=== PATIENT | female | born 1960 | race Caucasian/White ===

== ENCOUNTER 2018-11-03 10:21 | Outpatient (CLI) | payer BC | END 2018-11-03 10:22 | disposition home or self-care (01) | LOC: BICMAMMO 10:21 | PROVIDERS: ATTEND Family Medicine | DX: Z12.31 Encounter for screening mammogram for malignant neoplasm of breast (principal); R92.1 Mammographic calcification found on diagnostic imaging of breast | CPT/HCPCS: 77063; 77067 ==

== ENCOUNTER 2019-04-27 10:23 | Inpatient (IN) | payer BC ==
[2019-04-27] MEDS ORDERED: Ondansetron PF 4 MG/2 ML Vial ONE (10:51)
[2019-04-27 11:04] LABS: Bacteria/HPF 4+ HPF (None Seen); Bilirubin Negative (Negative); Blood, Urine 2+ (Negative); Clarity Extra Turbid (Clear); Glucose, Urine (Dipstick) Normal (Negative); Leukocyte 500 Leu/uL (Negative); Nitrite 2+ (Negative); Protein, Urine (Dipstick) 100 mg/dL (Neg-Trace); RBC/HPF Greater than 50 HPF (0-3); Urobilinogen Normal mg/dL (Less than 2); WBC/HPF Greater than 50 HPF (0-3)
[2019-04-27 11:14] LABS: #Lymphocytes 1.6 thou/uL (1.20-3.40); #Monocytes 0.6 thou/uL (0.11-0.59); #Neutrophils 5.9 thou/uL (1.40-6.50); %Basophils 0.4 % (0.0-1.0); %Eosinophils 0.2 % (0.0-10.0); %Lymphocytes 19.3 % (21.0-51.0); %Monocytes 7.4 % (0.0-10.0); %Neutrophils 72.6 % (42.0-75.0); Hemoglobin 12.8 g/dL (12.0-16.0); Mean Corpuscular HGB CONC 32.1 g/dL (32.0-36.0); Mean Corpuscular Volume 93.5 fL (78.0-98.0); Mean Platelet Volume 7.3 fL (7.4-10.4); Platelet Count 168 thou/uL (130-400); RBC Distribution Width 12.4 % (11.5-14.5); Red Blood Cell (RBC) Count 4.25 mill/uL (4.20-5.40); White Blood Cell (WBC) Count 8.1 thou/uL (4.8-10.8)
[2019-04-27 11:42] LABS: ALT (SGPT) 13 U/L (8-55); AST (SGOT) 18 U/L (5-34); Albumin 3.9 g/dL (3.5-5.0); Alkaline Phosphatase 127 U/L (40-150); Anion Gap 14 mmol/L (10-20); BUN (Urea Nitrogen) 13 mg/dL (9.8-20.1); Bilirubin, Total 0.8 mg/dL (0.2-1.2); Calc. Creatinine Clearance 0 mL/min (70-130); Calcium 9.4 mg/dL (7.8-10.44); Carbon Dioxide 24 mmol/L (22-29); Chloride 100 mmol/L (98-107); Estimated GFR-MDRD 42; Globulin 3.3 g/dL (2.4-3.5); Glucose 115 mg/dL (70-105); Lipase 21 U/L (8-78); Potassium 4.3 mmol/L (3.5-5.1); Protein, Total 7.2 g/dL (6.0-8.3); Sodium 134 mmol/L (136-145)
[2019-04-27] MEDS ORDERED: MEROPENEM 1 GM/50 ML 1 GM in Premix Bag 1 BAG IVPB SCH ×2 (12:00→20:00)
--- NOTE | 2019-04-27 12:00 | RAD ---
PORTABLE CHEST ONE VIEW: 04/27/2019 10:56 a.m. HISTORY: Fever. FINDINGS: The heart size is normal. No focal areas of consolidation, pneumothoraces, or pleural effusions are seen. IMPRESSION: No radiographic evidence of acute cardiopulmonary process. POS: [facility]
--- NOTE | 2019-04-27 12:33 | CT ---
EXAM: CT abdomen and pelvis with IV contrast PROVIDED CLINICAL HISTORY: Nausea COMPARISON: None FINDINGS: The visualized lung bases are free of significant opacity. The solid abdominal organs demonstrate no significant abnormality. Small left adrenal adenoma. Change s of prior cholecystectomy. There is no bowel dilatation, inflammatory fat stranding, free fluid or free air apparent. There is n o evidence for appendicitis. No regional lymph node enlargement apparent. The regional major vascular structures appear unremarkab le. The osseous structures demonstrate no concerning lytic or blastic lesions. IMPRESSION: No evidence for an acute process.
--- NOTE | 2019-04-27 13:17 | PDOC.FPRHP ---
- History of Present Illness Chief Complaint: UTI w/ nausea and lightheadedness History of Present Illness: PCP : Dr. Balbuena Ms. Myers is a previously healthy 58yoF who began having urinary symptoms at the beginning of this week (04/23/2019). She states that on Tuesday had a "spell" where she got nauseous, felt chills, and went home and stayed in bed. Tuesday she had a doctor's appointment and at that time it was found she had a urinary tract infection. Her doctor started her on Bactrim. She took two days worth of the antibiotics. Since then she has experienced persistent decrease in appetite and nausea. Last night she had another episode of nausea, chills, and felt light headed. She was unable to take any of her antibiotics. She continues to have pain with urination and describes her urine as cloudy yellow. She denies any past medical history other than depression. She does not endorse frequent urinary tract infections or a history of pyelonephritis. She did have one episode of atypical chest pain that was short in duration, substernal in nature, non-exertional, and went away spontaneously. ED Course: Sepsis alert triggered due to 103F temperature and HR of 120BPM. She received 1g Meropenem, 3L NS, and IV Zofran. Urine analysis was taken. - Allergies/Adverse Reactions Allergies Allergy/AdvReac Type Severity Reaction Status Date / Time Penicillins Allergy Verified 04/27/19 15:27 - Home Medications Medication Instructions Recorded Confirmed Type Atorvastatin Calcium 10 mg PO DAILY 04/27/19 04/27/19 History Cholecalciferol (Vitamin D3) 5,000 units PO DAILY 04/27/19 04/27/19 History [Vitamin D3] Refugio-3 Fatty Acids/Fish Oil [Fish 1,000 mg PO DAILY 04/27/19 04/27/19 History Oil 1,000 mg Capsule] Sertraline HCl 100 mg PO DAILY 04/27/19 04/27/19 History Sulfamethoxazole/Trimethoprim 1 tab PO BID 04/27/19 04/27/19 History [Bactrim DS] - History PMHx: Depression Dyslipidemia PSHx: Tonsillectomy Cholecystectomy FHx: Non-contributory Social: Social drinker, non-smoker/never smoker - Review of Systems General: reports: fever/chills, weight/appetite/sleep changes. denies: night sweats, fatigue Eyes: denies: eye pain ENT: denies: nasal congestion, rhinorrhea Respiratory: denies: cough, congestion, shortness of breath Cardiovascular: reports: chest pain (discomfort x1 episode). denies: palpitation, edema, paroxysmal nocturnal dyspnea Gastrointestinal: reports: nausea, constipation, abdominal pain. denies: vomiting, diarrhea, GI bleeding Genitourinary: reports: dysuria, polyuria. denies: incontinence, discharge Skin: denies: rashes, lesions, jaundice, itching Musculoskeletal: denies: pain, tenderness, stiffness, swelling, arthritis/ arthralgias Neurological: denies: numbness, syncope, seizure Psychological: reports: depression. denies: anxiety - Vital signs BP: 120/70 HR: 94 RR: 16 Tmax: 100.0 Pox: 97% on RA Wt: 114 kg - Physical Exam Constitutional: NAD, awake, alert and oriented, well developed HEENT: normocephalic and atraumatic, PERRLA, no scleral icterus, grossly normal vision, grossly normal hearing Neck: supple, trachea midline Chest: no-tender to palpation, no lesions Heart: RRR, normal S1/S2, no murmurs/rubs/gallops, pulses present Lungs: CTAB, no respiratory distress, good air movement, no rales/rhonchi, no wheezing, no retractions Abdomen: soft, non-tender, bowel sounds present, no masses/distention Musculoskeletal: normal structure, normal tone, ROM grossly normal Neurological: no focal deficit Skin: no rash/lesions, good turgor Heme/Lymphatic: no unusual bruising or bleeding Psychiatric: normal mood and affect FMR H&P: Results - Labs Result Diagrams: 04/27/19 10:50 04/27/19 10:50 Lab results: WBC 8.1 thou/uL (4.8-10.8) 04/27/19 10:50 Hgb 12.8 g/dL (12.0-16.0) 04/27/19 10:50 Hct 39.7 % (36.0-47.0) 04/27/19 10:50 MCV 93.5 fL (78.0-98.0) 04/27/19 10:50 Plt Count 168 thou/uL (130-400) 04/27/19 10:50 Neutrophils % 72.6 % (42.0-75.0) 04/27/19 10:50 Sodium 134 mmol/L (136-145) L 04/27/19 10:50 Potassium 4.3 mmol/L (3.5-5.1) 04/27/19 10:50 Chloride 100 mmol/L (98-107) 04/27/19 10:50 Carbon Dioxide 24 mmol/L (22-29) 04/27/19 10:50 BUN 13 mg/dL (9.8-20.1) 04/27/19 10:50 Creatinine 1.31 mg/dL (0.6-1.1) H 04/27/19 10:50 Glucose 115 mg/dL (70-105) H 04/27/19 10:50 Lactic Acid 1.3 mmol/L (0.5-2.2) 04/27/19 10:50 Calcium 9.4 mg/dL (7.8-10.44) 04/27/19 10:50 Total Bilirubin 0.8 mg/dL (0.2-1.2) 04/27/19 10:50 AST 18 U/L (5-34) 04/27/19 10:50 ALT 13 U/L (8-55) 04/27/19 10:50 Alkaline Phosphatase 127 U/L (40-150) 04/27/19 10:50 Serum Total Protein 7.2 g/dL (6.0-8.3) 04/27/19 10:50 Albumin 3.9 g/dL (3.5-5.0) 04/27/19 10:50 Lipase 21 U/L (8-78) 04/27/19 10:50 Urine Ketones Negative mg/dL (Negative) 04/27/19 10:29 Urine Blood 2+ (Negative) A 04/27/19 10:29 Urine Nitrite 2+ (Negative) A 04/27/19 10:29 Ur Leukocyte Esterase 500 Denisse/uL (Negative) A 04/27/19 10:29 Urine RBC Greater than 50 HPF (0-3) A 04/27/19 10:29 Urine WBC Greater than 50 HPF (0-3) A 04/27/19 10:29 Ur Squamous Epith Cells 4-6 HPF (0-3) A 04/27/19 10:29 Urine Bacteria 4+ HPF (None Seen) A 04/27/19 10:29 Laboratory Tests 04/27/19 10:29 Urine Clarity Extra Turbid A Urine Protein 100 A Urine Blood 2+ A Urine Nitrite 2+ A Ur Leukocyte Esterase 500 A Urine RBC Greater than 50 A Urine WBC Greater than 50 A Ur Squamous Epith Cells 4-6 A Urine Bacteria 4+ A - EKG Interpretation EK lead EKG shows normal sinus rhythm, Rate (beats per minute): 99, Conduction normal, ST segments normal, T waves normal, [place] normal - Radiology Interpretation CT scan - abdomen Status: report reviewed by me Additional comment: No acute processes Chest x-ray Status: report reviewed by me Additional comment: No Acute processes FMR H&P: A/P - Problem List (1) Depression Current Visit: Yes Status: Acute Code(s): F32.9 - MAJOR DEPRESSIVE DISORDER , SINGLE EPISODE, UNSPECIFIED (2) Sepsis secondary to UTI Current Visit: Yes Status: Acute Code(s): A41.9 - SEPSIS, UNSPECIFIED ORGANISM; N39.0 - URINARY TRACT INFECTION, SITE NOT SPECIFIED (3) SORAYA (acute kidney injury) Current Visit: Yes Status: Acute Code(s): N17.9 - ACUTE KIDNEY FAILURE, UNSPECIFIED (4) Hyperlipidemia Current Visit: Yes Status: Acute Code(s): E78.5 - HYPERLIPIDEMIA, UNSPECIFIED (5) Atypical chest pain Current Visit: Yes Status: Acute Code(s): R07.89 - OTHER CHEST PAIN - Plan 1. Sepsis Secondary to acute complicated UTI * Met SIRS due to temperature of 103F, heart rate of 120s. Source is known UTI, diagnosed in primary care clinic this week. * IV Antibiotics: meropenem 1g TID and vancomycin 15mg/kg BID * IV fluids: received adequate bolus in ed. Maintenance at 140ml/hr * Blood and Urine cultures are pending * Zofran for nausea * Tylenol prn for pain 2. Acute kidney injury * Creatinine 1.31 up from baseline of 0.8 * IVFs 140mL/hr 3. Atypical chest pain * 1 episode of substernal chest pain that was squeezing in nature, non- exertional, and went away on its own. * EKG in the ER was normal * 1st troponin was negative. * Will trend trops and monitor. 4. Depression * Stable, continue Sertraline 100mg 5. Hyperlidemia * recently started on atorvastatin 10mg, will continue Disposition/LOS: Dispo: home Code status: full VTE: Lovenox LOS: <48hrs expected Diet: normal IVF: 140mL/hour FMR H&P: Upper Level - Pertinent history Date/Time: 04/27/19 1313 I, Mars Beal MD, have evaluated this patient and agree with findings/plan as outlined by [employer] certified internetwork expert resident. Pertinent changes/additions are listed here. Ivelisse Myers is a 58 year old F with a PMH of HLD and MDD who presented to the ED with a 4-5 day history for urinary symptoms. Dysuria and urinary frequency started Tuesday and patient went to see his PCP on Tuesday, was diagnosed with UTI and was started on Bactrim. She took the Tuesday and Tuesday dose but missed the next two days because she was not feeling well enough. On Tuesday, she developed nausea, fever, and chills. On arrival to the ED, her temp was 103.1 and she was tachycardic at 110. She denies any history of pyelonephritis. She denies any flank/back pain. She has continued to have urinary symptoms and her urine is darker than normal. She also states that a couple days ago, she experienced chest pressure and heaviness. States that she has no cardiac history and has never had pain like this before. She is not actively having any chest pain. Pain was no associated with exertion. She denies hx of acid reflux. She denies dyspnea, cough, diaphoresis. In the ED, she was given 1 g of Meropenem, 4 mg Zofran, and 30 ml/kg bolus of NS. ROS: 12 point ROS reviewed and were negative unless otherwise stated in HPI. Vitals: BP: 120/70, HR 94, RR 16, T 100.0, O2 sat 97 on RA, weight 114 kg PE: HEENT: AT/NC, EOMI, PERRL, MMM CV: RRR, no murmurs, rubs, gallops Resp: CTAB, no wheezes, rales, rhonchi Abd: Soft, NT/ND, mild TTP in the suprapubic location, BS+, No CVAT Ext: No cyanosis or edema Psych: Alert and oriented, normal mood and affect EKG: NSR, Rate 99, No ST changes, possible Left atrial enlargement CXR: no acute cardiopulmonary process CT Abd: No acute process EKG: NSR, Rate 99, No ST changes, possible left atrial enlargement CXR: No acute cardiopulmonary findings CT Abd: no acute process - Pertinent findings Laboratory Tests 04/27/19 04/27/19 04/27/19 10:29 10:50 10:50 WBC 8.1 Hc Plt Count 168 Sodium 134 L Potassium 4.3 Chloride 100 Carbon Dioxide 24 BUN 13 Creatinine 1.31 H Estimated GFR (MDRD) 42 Glucose 115 H Lactic Acid Calcium 9.4 Magnesium 2.0 Total Bilirubin 0.8 AST 18 ALT 13 Alkaline Phosphatase 127 Troponin I Lipase 21 Urine Clarity Extra Turbid A Urine pH 6.0 Ur Specific [place] 1.015 Urine Protein 100 A Urine Glucose (UA) Normal Urine Ketones Negative Urine Blood 2+ A Urine Nitrite 2+ A Urine Bilirubin Negative Ur Leukocyte Esterase 500 A Urine RBC Greater than 50 A Urine WBC Greater than 50 A Ur Squamous Epith Cells 4-6 A Urine Bacteria 4+ A 04/27/19 04/27/19 10:50 10:50 WBC Hgb Hct Plt Count Sodium Potassium Chloride Carbon Dioxide BUN Creatinine Estimated GFR (MDRD) Glucose Lactic Acid 1.3 Calcium Magnesium Total Bilirubin AST ALT Alkaline Phosphatase Troponin I Less than 0.010 Lipase Urine Clarity Urine pH Ur Specific [place] Urine Protein Urine Glucose (UA) Urine Ketones Urine Blood Urine Nitrite Urine Bilirubin Ur Leukocyte Esterase Urine RBC Urine WBC Ur Squamous Epith Cells Urine Bacteria - Plan A/P 1) Sepsis 2/2 Acute Complicated UTI - On admission, T of 103.1 and HR of 110, UA showed 4+ bact, 2+ Nitrites, 500 leuk est, >500 WBC - 5 day hx of urinary freq and dysuria, chills, fever, nausea - CT Abd: negative for acute intraabdominal process, CXR negative, Lactate was normal - S/p NS bolus and 1 g Meropenem in ED - Continue Empiric IV Abx, Meropenem and Vancomycin - Blood and Urine Cx pending - Continue IVFs @ 140 ml/hr - Continue Zofran for nausea, Tylenol for fever 2) SORAYA - Cr elevated from baseline, likely 2/2 sepsis vs dehydration - s/p 3 L NS in ED - Continue mIVFs - Repeat BMP in AM 3) Atypical Chest Pain - One episode of substernal chest pain at rest 3 days ago, now resolved - EKG showed NSR in 90s without ST changes, possible left atrial enlargement, no cardiac hx - Trop is negative, CXR negative - Will trend troponins - May need outpatient stress test 4) HLD - Continue home medication 5) Depression - Continue home medication VTE Ppx: Lovenox CODE STATUS: FULL CODE Dispo: Anticipate hospital stay <48 hrs Addendum - Attending - Attending Attestation Date/Time: 04/27/19 2929 I personally evaluated the patient and discussed the management with Dr. Cantu. I agree with the History, Examination, Assessment and Plan documented above with any addition or exceptions noted below.
[2019-04-27] MEDS ORDERED: ISOVUE-370 76%-LOCM 1 ML ONE (13:35)
[2019-04-27 15:04] VITALS: BMI 39.0
[2019-04-27] MEDS ORDERED: Senokot S 8.6-50 MG TAB PO PRN (15:48)
[2019-04-27] MEDS ORDERED: Ondansetron ODT 4 MG TAB PO PRN (15:48)
[2019-04-27] MEDS: Acetaminophen 325 MG TAB PO PRN ×2 (16:55→22:25)
[2019-04-27] MEDS ORDERED: Vancomycin HCl 1.75 GM in Sodium Chloride 0.9% 250 ML 300 ML IVPB SCH ×2 (18:15→21:00)
[2019-04-27] MEDS: Sodium Chloride 0.9% 1,000 ML IV SCH (18:18)
[2019-04-27] MEDS ORDERED: Vancomycin HCl 1.75 GM in Sodium Chloride 0.9% 500 ML IVPB SCH (18:30)
[2019-04-27 18:40] LABS: Troponin I Less than 0.010 ng/mL (< 0.028)
[2019-04-28 01:25] LABS: Troponin I Less than 0.010 ng/mL (< 0.028)
[2019-04-28] MEDS: Sodium Chloride 0.9% 1,000 ML IV SCH ×3 (01:26→17:34)
[2019-04-28] MEDS: Acetaminophen 325 MG TAB PO PRN ×2 (03:05→12:32)
[2019-04-28] MEDS: MEROPENEM 1 GM/50 ML 1 GM in Premix Bag 1 BAG IVPB SCH ×3 (05:45→21:20)
--- NOTE | 2019-04-28 06:31 | PDOC.FM ---
- Subjective Subjective: Ms. Myers states that overnight she continued to feel feverish, chills, and nausea periodically throughout the night. Her symptoms resolved with tylenol. She has dull suprapubic pain. Denies CVA tenderness. Denies chest pain, shortness of breath. - Objective MAR Reviewed: Yes Vital Signs & Weight: Vital Signs (12 hours) Temp Pulse Resp BP Pulse Ox 04/28/19 04:00 98.6 F 79 18 100/62 96 04/28/19 00:00 100.4 F H 90 18 97/59 L 94 L 04/27/19 20:00 99.7 F H 89 18 99/64 96 04/27/19 19:48 95 18 118/56 L 94 L 04/27/19 18:40 99.9 F H Weight Weight 116.483 kg I&O: 04/26/19 04/27/19 04/28/19 06:59 06:59 06:59 Intake Total 456 Balance 456 Result Diagrams: 04/28/19 06:08 04/28/19 06:08 Additional Labs: 04/28/19 - 1 of 2 blood cultures has grown gram negative rods, likely E. coli. Phys Exam - Physical Examination Constitutional: NAD HEENT: PERRLA, moist MMs, sclera anicteric Neck: supple, full ROM Respiratory: no wheezing, no rales, no rhonchi, clear to auscultation bilateral Cardiovascular: RRR, no significant murmur, no rub Gastrointestinal: soft, non-tender, no distention, positive bowel sounds Musculoskeletal: no edema, pulses present Neurological: non-focal, moves all 4 limbs Psychiatric: normal affect, A&O x 3 Skin: no rash, normal turgor, cap refill <2 seconds Dx/Plan (1) Depression Code(s): F32.9 - MAJOR DEPRESSIVE DISORDER, SINGLE EPISODE, UNSPECIFIED Status : Acute (2) Sepsis secondary to UTI Code(s): A41.9 - SEPSIS, UNSPECIFIED ORGANISM; N39.0 - URINARY TRACT INFECTION, SITE NOT SPECIFIED Status: Acute (3) SORAYA (acute kidney injury) Code(s): N17.9 - ACUTE KIDNEY FAILURE, UNSPECIFIED Status: Acute (4) Hyperlipidemia Code(s): E78.5 - HYPERLIPIDEMIA, UNSPECIFIED Status: Acute (5) Atypical chest pain Code(s): R07.89 - OTHER CHEST PAIN Status: Acute - Plan Plan: 1. Sepsis Secondary to acute complicated UTI * Met SIRS due to temperature of 103F, heart rate of 120s. Source is known UTI, diagnosed in primary care clinic this week. * Still fevering overnight, 102.6 at 1650 (04/27) and 100.4 at 0000 (04/28). * IV Antibiotics: meropenem 1g TID and vancomycin 15mg/kg BID * IV fluids: received adequate bolus in ed. Maintenance at 140ml/hr * Blood and Urine cultures are pending * 1 of 2 blood cultures has grown gram negative rods, likely E coli. Will continue vanc and zosyn. * Zofran for nausea * Tylenol prn for pain 2. Acute kidney injury, resolved. * Likely secondary to sepsis * Creatinine 0.9, back to her baseline. * IVFs 140mL/hr 3. Atypical chest pain * 1 episode of substernal chest pain that was squeezing in nature, non- exertional, and went away on its own. EKG in the ER was normal * Troponins negative x3 4. Depression * Stable, continue Sertraline 100mg 5. Hyperlidemia * recently started on atorvastatin 10mg, will continue Dispo: upgraded to inpatient status, >48hours expected Code status: full VTE: Lovenox LOS: <48hrs expected Diet: normal IVF: 140mL/hour Addendum - Attending - Attending Attestation Date/Time: 04/28/19 3026 I personally evaluated the patient and discussed the management with I agree with the History, Examination, Assessment and Plan documented above with any addition or exceptions noted below. Await culture results for potential de-escalation antibiotics.
[2019-04-28 06:39] LABS: #Lymphocytes 1.3 thou/uL (1.20-3.40); #Monocytes 0.5 thou/uL (0.11-0.59); #Neutrophils 2.8 thou/uL (1.40-6.50); %Basophils 0.2 % (0.0-1.0); %Eosinophils 0.4 % (0.0-10.0); %Lymphocytes 28.1 % (21.0-51.0); %Monocytes 10.2 % (0.0-10.0); %Neutrophils 61.2 % (42.0-75.0); Hemoglobin 10.3 g/dL (12.0-16.0); Mean Corpuscular HGB CONC 31.9 g/dL (32.0-36.0); Mean Corpuscular Hemoglobin 30.2 pg (27.0-31.0); Mean Corpuscular Volume 94.6 fL (78.0-98.0); Mean Platelet Volume 7.2 fL (7.4-10.4); Platelet Count 122 thou/uL (130-400); RBC Distribution Width 12.2 % (11.5-14.5); Red Blood Cell (RBC) Count 3.42 mill/uL (4.20-5.40); White Blood Cell (WBC) Count 4.6 thou/uL (4.8-10.8)
[2019-04-28 07:02] LABS: Anion Gap 7 mmol/L (10-20); BUN (Urea Nitrogen) 10 mg/dL (9.8-20.1); Calc. Creatinine Clearance 127 mL/min (70-130); Calcium 8.4 mg/dL (7.8-10.44); Carbon Dioxide 28 mmol/L (22-29); Chloride 109 mmol/L (98-107); Estimated GFR-MDRD 65; Glucose 99 mg/dL (70-105); Potassium 4.1 mmol/L (3.5-5.1); Sodium 140 mmol/L (136-145)
[2019-04-28] MEDS ORDERED: Vancomycin HCl 1.75 GM in Sodium Chloride 0.9% 250 ML 300 ML IVPB SCH (08:00)
[2019-04-28] MEDS: Atorvastatin Calcium 10 MG TAB PO SCH (08:53)
[2019-04-28] MEDS: Enoxaparin Sodium 40 MG/0.4 ML SYRINGE SC SCH (08:53)
[2019-04-28] MEDS: Vancomycin HCl 1.75 GM in Sodium Chloride 0.9% 500 ML IVPB SCH ×2 (10:09→21:22)
[2019-04-28] MEDS ORDERED: Meropenem 1 GM in Sodium Chloride 0.9% 100 ML IVPB SCH (12:00)
[2019-04-28 19:17] LABS: Vancomycin, Trough 16.2 ug/mL
[2019-04-29] MEDS: Acetaminophen 325 MG TAB PO PRN (00:36)
[2019-04-29] MEDS: Sodium Chloride 0.9% 1,000 ML IV SCH ×4 (00:38→20:04)
--- NOTE | 2019-04-29 05:39 | PDOC.FM ---
- Subjective Subjective: Ms. Myers states that she is feeling much better this morning. She rested well overnight. She did have a fever at 0100 this morning but states that she didn't feel as bad as she had been when she fevered. She denied her lovenox last night and has not been ambulating, mostly laying in bed. She denies chest pains, shortness of breath, abdominal pain, constipation, dysuria. - Objective MAR Reviewed: Yes Vital Signs & Weight: Vital Signs (12 hours) Temp Pulse Resp BP Pulse Ox 04/29/19 01:35 100.7 F H 93 18 107/72 97 04/28/19 20:00 99.2 F 82 18 100/68 97 Weight Admit Weight 71.123 kg Weight 116.483 kg I&O: 04/27/19 04/28/19 04/29/19 06:59 06:59 06:59 Intake Total 456 2220 Balance 456 2220 Result Diagrams: 04/28/19 06:08 04/29/19 05:33 Additional Labs: Microbiology 04/27/19 10:50 Venous blood - Right Arm Blood Culture - Preliminary Specimen has been received and culture in progress. No Growth to date. 04/27/19 10:50 Venous blood - Left Arm Blood Culture - Preliminary Escherichia coli 04/27/19 10:29 Urine clean catch Urine Culture - Preliminary Escherichia coli Phys Exam - Physical Examination Constitutional: NAD HEENT: PERRLA, moist MMs, sclera anicteric Neck: supple, full ROM Respiratory: no wheezing, no rales, no rhonchi, clear to auscultation bilateral Cardiovascular: RRR, no significant murmur, no rub Gastrointestinal: soft, non-tender, no distention, positive bowel sounds Musculoskeletal: no edema, pulses present Neurological: non-focal, moves all 4 limbs Psychiatric: normal affect, A&O x 3 Skin: no rash, normal turgor, cap refill <2 seconds Dx/Plan (1) Depression Code(s): F32.9 - MAJOR DEPRESSIVE DISORDER, SINGLE EPISODE, UNSPECIFIED Status : Acute (2) Sepsis secondary to UTI Code(s): A41.9 - SEPSIS, UNSPECIFIED ORGANISM; N39.0 - URINARY TRACT INFECTION, SITE NOT SPECIFIED Status: Acute (3) SORAYA (acute kidney injury) Code(s): N17.9 - ACUTE KIDNEY FAILURE, UNSPECIFIED Status: Acute (4) Hyperlipidemia Code(s): E78.5 - HYPERLIPIDEMIA, UNSPECIFIED Status: Acute (5) Atypical chest pain Code(s): R07.89 - OTHER CHEST PAIN Status: Acute - Plan Plan: * She refused her lovenox injection. Highly emphasized the need for VTE prophylaxis. Encouraged frequent walking today. * 1. Sepsis Secondary to acute complicated UTI * Met SIRS in the ED due to temperature of 103F, heart rate of 120s. Source is known UTI, diagnosed in primary care clinic this week. * Still fevering. 100.7 overnight at 0135 (04/29) * IV Antibiotics: meropenem 1g TID and vancomycin 15mg/kg BID. * Urine has grown E. coli and 1 of 2 blood cultures also grew E. coli. The urinary specimen is sensitive to a wide variety of antibiotics. * Will discontinue vancomycin and meropenem today * Start IV Ciprofloxacin 400mg today. Tomorrow transition to po cipro for a total of 5 days on ciprofloxacin. * Ordered repeat CBC in the morning * IV fluids: received adequate bolus in ed. Maintenance at 140ml/hr * Zofran for nausea * Tylenol prn for pain and fever 2. Acute kidney injury, resolved. * Likely secondary to sepsis * Creatinine 0.9, back to her baseline. * IVFs 140mL/hr 3. Atypical chest pain * 1 episode of substernal chest pain that was squeezing in nature, non- exertional, and went away on its own. EKG in the ER was normal * Troponins negative x3 4. Depression * Stable, continue Sertraline 100mg 5. Hyperlidemia * recently started on atorvastatin 10mg, will continue Dispo: upgraded to inpatient status, >48hours expected Code status: full VTE: Lovenox LOS: >48hrs expected Diet: normal IVF: 140mL/hour Addendum - Attending - Attending Attestation Date/Time: 04/29/19 7026 I personally evaluated the patient and discussed the management with Dr. Cantu I agree with the History, Examination, Assessment and Plan documented above with any addition or exceptions noted below. de-escalation Antibiotic encourage increased activity. Clinical course favor pyelonephritis, definitely complicated UTI at the least. Expectant management further imaging/evaluation prn.
[2019-04-29] MEDS: MEROPENEM 1 GM/50 ML 1 GM in Premix Bag 1 BAG IVPB SCH (06:19)
[2019-04-29 07:19] LABS: Anion Gap 11 mmol/L (10-20); BUN (Urea Nitrogen) 11 mg/dL (9.8-20.1); Calc. Creatinine Clearance 144 mL/min (70-130); Calcium 8.3 mg/dL (7.8-10.44); Carbon Dioxide 21 mmol/L (22-29); Chloride 111 mmol/L (98-107); Estimated GFR-MDRD 75; Glucose 91 mg/dL (70-105); Potassium 4.1 mmol/L (3.5-5.1); Sodium 139 mmol/L (136-145)
[2019-04-29] MEDS: Vancomycin HCl 1.75 GM in Sodium Chloride 0.9% 500 ML IVPB SCH (08:30)
[2019-04-29] MEDS: Atorvastatin Calcium 10 MG TAB PO SCH (08:30)
[2019-04-29] MEDS: Enoxaparin Sodium 40 MG/0.4 ML SYRINGE SC SCH (08:32)
[2019-04-30] MEDS: Sodium Chloride 0.9% 1,000 ML IV SCH ×3 (05:13→16:50)
[2019-04-30 05:44] LABS: #Lymphocytes 1.1 thou/uL (1.20-3.40); #Monocytes 0.3 thou/uL (0.11-0.59); #Neutrophils 1.6 thou/uL (1.40-6.50); %Basophils 0.3 % (0.0-1.0); %Eosinophils 0.7 % (0.0-10.0); %Lymphocytes 35.7 % (21.0-51.0); %Monocytes 10.8 % (0.0-10.0); %Neutrophils 52.4 % (42.0-75.0); Hemoglobin 9.7 g/dL (12.0-16.0); Mean Corpuscular HGB CONC 31.8 g/dL (32.0-36.0); Mean Corpuscular Hemoglobin 29.9 pg (27.0-31.0); Mean Platelet Volume 7.4 fL (7.4-10.4); Platelet Count 121 thou/uL (130-400); Red Blood Cell (RBC) Count 3.24 mill/uL (4.20-5.40); White Blood Cell (WBC) Count 3.1 thou/uL (4.8-10.8)
--- NOTE | 2019-04-30 06:48 | PDOC.FM ---
- Subjective Subjective: VSS. Temp max at 100.0 F on 04/29 at 20:00. Otherwise, patient is feeling well today. No acute events overnight. She ambulated ~1 hour yesterday after refusing lovenox. States she did not feel very good after that and wonders if she just "overdid it." Has mild epigastric pain. Eating without problem. +BM. No dysuria. No nausea/vomiting. Discussed asking nurse for lovenox today if she is not feeling up to ambulating. - Objective MAR Reviewed: Yes Vital Signs & Weight: Vital Signs (12 hours) Temp Pulse Resp BP Pulse Ox 04/30/19 04:58 98.6 F 72 20 115/78 95 04/30/19 00:31 98.5 F 85 20 99/61 94 L 04/29/19 20:00 100.0 F H 79 20 104/57 L 95 Weight Admit Weight 71.123 kg Weight 116.483 kg I&O: 04/28/19 04/29/19 04/30/19 06:59 06:59 06:59 Intake Total 456 4720 2814 Balance 456 4720 2814 Result Diagrams: 04/30/19 04:57 04/29/19 05:33 Phys Exam - Physical Examination Constitutional: NAD Respiratory: clear to auscultation bilateral Cardiovascular: RRR, no significant murmur Gastrointestinal: soft, non-tender, no distention, positive bowel sounds Musculoskeletal: no edema Psychiatric: normal affect, A&O x 3 Skin: no rash Dx/Plan (1) SORAYA (acute kidney injury) Code(s): N17.9 - ACUTE KIDNEY FAILURE, UNSPECIFIED Status: Acute (2) Atypical chest pain Code(s): R07.89 - OTHER CHEST PAIN Status: Acute (3) Depression Code(s): F32.9 - MAJOR DEPRESSIVE DISORDER, SINGLE EPISODE, UNSPECIFIED Status : Acute (4) Hyperlipidemia Code(s): E78.5 - HYPERLIPIDEMIA, UNSPECIFIED Status: Acute (5) Sepsis secondary to UTI Code(s): A41.9 - SEPSIS, UNSPECIFIED ORGANISM; N39.0 - URINARY TRACT INFECTION, SITE NOT SPECIFIED Status: Acute - Plan Plan: 58-year-old female admitted for sepsis 2/2 complicated UTI: 1. Sepsis 2/2 acute complicated UTI - Tmax 100.0 F overnight. Improving. Will continue to monitor. - Blood cultures 1 of 2 positive for E. Coli. Resistant to Ampicillin and TMP/ SMX. Intermediate to ampicillin/sulbactam. Sensitive to everything else. - Urine culture positive w/ the same as above. - Patient received simultaneous vanc 1.75 q12h for 2 days, meropenem 1g q8h for 2 days, and was switched to IV Ciprofloxacin 400mg q12h yesterday. - Give morning dose of IV Cipro 400mg, then transition to PO ciprofloxacin 500mg q12h this evening. Will plan to continue for PO Abx for 7 days. This would be appropriate coverage of abx for a total of 10 days. - Tylenol PO for pain. - Zosyn prn for nausea. 2. Acute kidney injury (SORAYA) - Resolved. Creatinine 0.79, decreased from 1.31. Likely 2/2 sepsis. - Patient is able to eat and drink, so d/c IV fluids and encourage PO intake. 3. Depression - Stable. Continue sertraline 100 mg daily po. 4. HLD - Continue atorvastatin 10mg daily po. 5. Atypical chest pain - Resolved. Episode in the ED. Has not recurred since admission. EKG normal. Troponins negative x3. Marie Valenzuela MD PGY-1 Addendum - Attending - Attending Attestation Date/Time: 04/30/19 0891 I personally evaluated the patient and discussed the management with Dr. Valenzuela and team. I agree with the History, Examination, Assessment and Plan documented above with any addition or exceptions noted below. Patient feels markedly improved today. Denies dysuria/urgency/f/c/n/v. Sepsis 2/2 E. coli UTI c/b bacteremia, now with thrombocytopenia and leukopenia -continue cipro, transition to PO. -rapid improvement, will defer repeat culture -Will send HIV/hep panel in light of lab changes, but expect simply delayed 2/2 sepsis Hopefully home tomorrow.
[2019-04-30] MEDS: Enoxaparin Sodium 40 MG/0.4 ML SYRINGE SC SCH (08:20)
[2019-04-30] MEDS: Atorvastatin Calcium 10 MG TAB PO SCH (08:20)
[2019-04-30] MEDS: Ciprofloxacin 500 MG TAB PO SCH (19:56)
[2019-05-01] MEDS: Sodium Chloride 0.9% 1,000 ML IV SCH ×2 (00:27→08:09)
[2019-05-01] MEDS: Ciprofloxacin 500 MG TAB PO SCH (05:58)
--- NOTE | 2019-05-01 06:48 | PDOC.FM ---
- Subjective Subjective: VSS. Afebrile for >24 hours. Patient is feeling "back to normal" this morning. She is ready to go home. She complains of a dull RUQ/epigastric pain, which worsened after she ate a salad last night, but also has been hurting chronically with bending forward movements. She does not think this is something that will keep her in the hospital, but she was wondering where to follow up for it. Informed patient her PCP would see her as a hospital follow up and could work up the RUQ pain at that time. Otherwise, she denies any dysuria, trouble w/ bowel movements, feeling feverish, and trouble ambulating. She has been tolerating PO without nausea/vomiting. - Objective MAR Reviewed: Yes Vital Signs & Weight: Vital Signs (12 hours) Temp Pulse Resp BP Pulse Ox 05/01/19 05:24 98.8 F 69 18 105/50 L 93 L 05/01/19 00:00 98.7 F 70 18 102/67 92 L 04/30/19 20:00 97 04/30/19 19:24 98.6 F 82 18 111/72 97 04/30/19 19:05 98.8 F Weight Admit Weight 71.123 kg Weight 116.483 kg I&O: 04/29/19 04/30/19 05/01/19 06:59 06:59 06:59 Intake Total 4720 2814 4980 Balance 4720 2814 4980 Result Diagrams: 04/30/19 04:57 04/29/19 05:33 Phys Exam - Physical Examination Constitutional: NAD HEENT: sclera anicteric Respiratory: no wheezing, no rales, no rhonchi, clear to auscultation bilateral Cardiovascular: RRR, no significant murmur Gastrointestinal: soft (mild point tenderness over right epigastric area, not over the ribs. ), no distention, positive bowel sounds Musculoskeletal: no edema, pulses present Psychiatric: normal affect, A&O x 3 Dx/Plan (1) SORAYA (acute kidney injury) Code(s): N17.9 - ACUTE KIDNEY FAILURE, UNSPECIFIED Status: Acute (2) Atypical chest pain Code(s): R07.89 - OTHER CHEST PAIN Status: Acute (3) Depression Code(s): F32.9 - MAJOR DEPRESSIVE DISORDER, SINGLE EPISODE, UNSPECIFIED Status : Acute (4) Hyperlipidemia Code(s): E78.5 - HYPERLIPIDEMIA, UNSPECIFIED Status: Acute (5) Sepsis secondary to UTI Code(s): A41.9 - SEPSIS, UNSPECIFIED ORGANISM; N39.0 - URINARY TRACT INFECTION, SITE NOT SPECIFIED Status: Acute - Plan Plan: 58-year-old female admitted for sepsis 2/2 complicated UTI: 1. Sepsis 2/2 acute complicated UTI - Afebrile for >24 hours. - FINAL Blood cultures 1 of 2 positive for E. Coli. Resistant to Ampicillin and TMP/SMX. Intermediate to ampicillin/sulbactam. Sensitive to everything else. - Urine culture positive w/ the same as above. - Patient received simultaneous vanc 1.75 q12h for 2 days, meropenem 1g q8h for 2 days, and was switched to IV Ciprofloxacin 400mg q12h yesterday. - Transitioned to PO ciprofloxacin 500mg q12h this evening. Discharge w/ 6.5 days of PO Cipro (tonight's dose, then 6 more days). - F/U w/ PCP for possible imaging: CT Abd 2. Acute kidney injury (SORAYA) - Resolved. Creatinine 0.79, decreased from 1.31. Likely 2/2 sepsis. 3. Depression - Stable. Continue sertraline 100 mg daily po. 4. HLD - Continue atorvastatin 10mg daily po. 5. Atypical chest pain - Resolved. Episode in the ED. Has not recurred since admission. EKG normal. Troponins negative x3. 6. Thrombocytopenia, leukopenia - Observed on labs yesterday. - HIV/Hep panel sent. Will update patient & PCP w/ these results. Recommend a recheck of CBC at outpatient follow up. Marie Valenzuela MD PGY-1
[2019-05-01 07:06] LABS: HBSAB Concentration 0.31 mIU/mL; Hep B Surf AB Non-Reactive (NonReactive); Hep C IgG Ab Non-Reactive (NonReactive); Hep C Index 0.07 S/CO (0-0.79)
[2019-05-01] MEDS: Atorvastatin Calcium 10 MG TAB PO SCH (08:08)
[2019-05-01] MEDS: Enoxaparin Sodium 40 MG/0.4 ML SYRINGE SC SCH (08:08)
[2019-05-01 09:10] VITALS: BP 113/73; TEMP 98.3
--- NOTE | 2019-05-01 13:33 | PRG ---
DATE OF SERVICE: 05/01/2019 Ms. Myers is a 58-year-old lady, who was admitted with sepsis from a UTI. She was treated with broad-spectrum antibiotics and made a very good recovery. She will be discharged today. Job ID: [id number]
--- NOTE | 2019-05-01 13:48 | PQF ---
CLINICAL DOCUMENTATION IMPROVEMENT CLARIFICATION FORM: ICD-10 Updated PLEASE DO AN ADDENDUM TO THE PROGRESS NOTE WITH ANY DOCUMENTATION UPDATES OR ADDITIONS AND CARRY THROUGH TO DC SUMMARY. THANK YOU. DATE: 05/01/2019 ATTN: Dr. Valenzuela/ Attending Dr. Newton Please exercise your independent, professional judgment in responding to the clarification form. Clinical indicators are provided on the bottom of this form for your review Please check appropriate box(s): Major depressive disorder, single episode: Severity: [ ] Mild [ ] Moderate [ ] Severe, without psychotic features [ ] Severe with psychotic features [ ] Other specified [ ] Other diagnosis [X] Unable to determine In addition, please specify: Present on Admission (POA): [X] Yes [ ] No [ ] Unable to determine For continuity of documentation, please document condition throughout progress notes and discharge summary. Thank You. CLINICAL INDICATORS - SIGNS / SYMPTOMS / LABS PN 04/28: Depression. Major Depressive disorder, single episode, unspecified. Acute PN 04/30: Depression. -Stable. RISKS: H&P: PMH of HLD and MDD. TREATMENT: H&P: continue Sertraline 100mg Thank you, Rocio (This form is maintained as a part of the permanent medical record) 2015 [email or web address]. All Rights Reserved Rocio Monique RN, BSN [email or web address] Office: [phone] [facility]
--- NOTE | 2019-05-02 05:51 | DIS ---
DATE OF ADMISSION: 04/27/2019 DATE OF DISCHARGE: 05/01/2019 RESIDENT: Dr. Marie Valenzuela ADMITTING ATTENDING: Dr. Spencer Kang DISCHARGE ATTENDING: Dr. Barahona CONSULTS: None. PROCEDURES: CT Abd/Pelvis w/ contrast PRIMARY DIAGNOSIS: 1. Sepsis secondary to acute complicated urinary tract infection. SECONDARY DIAGNOSES: 1. Acute kidney injury. 2. Atypical chest pain. 3. Hyperlipidemia, stable 4. Major depressive disorder, stable DISCHARGE MEDICATIONS: Ciprofloxacin 500 mg q12 hours. Discontinued medications: Bactrim 1 tablet p.o. b.i.d. HISTORY OF PRESENT ILLNESS AND HOSPITAL COURSE: This 58-year-old female w/ PMHx of hyperlipidemia and major depressive disorder presented to the emergency department for worsening fever, nausea, and chills after being diagnosed as an outpatient with a UTI four days prior to admission. On 04/23/19, she was given Bactrim for symptoms suggestive of UTI and completed 2 days of the antibiotic therapy before arriving in the ED w/ a fever of 103.0 F and heart rate in 120s bpm. Patient met sepsis criteria, and her creatinine was elevated from baseline suggesting acute kidney injury secondary to sepsis. CT of the abdomen/pelvis w/ contrast and CXR revealed no acute process or acute abnormalities. The ED started the patient on fluids, meropenem, and vancomycin, which she received for 2 days. Urinalysis was extremely positive for nitrites, leukocyte esterase and bacteria on high power field. During her hospital stay, the patient continued to spike fevers. Urine cultures revealed growth of E. Coli, which was resistant to Bactrim. The same organism and sensitivities resulted in one of her blood cultures. Patient eventually improved. Antibiotics were deescalated to IV ciprofloxacin. She was then transitioned to oral ciprofloxacin as her PO tolerance improved. Of note, leukopenia and thrombocytopenia were seen on labs, so HIV and Hep B/C panels were sent. These will need to be followed up with her PCP, along with repeat CBC and CMP. Since this was the patient's first sepsis from a UTI, she will need a CT of the abdomen and/or other warranted imaging to evaluate for any abnormalities which may predispose her to severe UTIs. With regards to her atypical chest pain, this was a brief one time event, for which EKG and troponins x3 were negative. Her acute kidney injury secondary to sepsis resolved with fluids. Her depression and hyperlipidemia medications were continued upon admission for management of her stable, chronic conditions. DISPOSITION: Stable. DISCHARGE INSTRUCTIONS: 1. Location: Home. 2. Diet: Regular. 3. Activity: As tolerated. 4. Followup: With PCP in the next 3 to 7 days. Recommend CBC, CMP, imaging as above. Marie Valenzuela MD PGY-1 Job ID: [id number] MTDD
== END 2019-05-01 10:14 | disposition home or self-care (01) | DRG 872 ==
LOC: ERS 10:23 → 2SW 13:05 → OBSVTOIN 13:05 → T4-A 19:42
PROVIDERS: ADMIT Family Medicine; ATTEND Family Medicine
DX: A41.51 Sepsis due to Escherichia coli [E. coli] (principal); N39.0 Urinary tract infection, site not specified; N17.9 Acute kidney failure, unspecified; E78.1 Pure hyperglyceridemia; F32.9 Major depressive disorder, single episode, unspecified; E86.0 Dehydration; R07.89 Other chest pain; Z53.29 Procedure and treatment not carried out because of patient's decision for other reasons; D69.6 Thrombocytopenia, unspecified; D72.819 Decreased white blood cell count, unspecified; Z88.0 Allergy status to penicillin; Z87.440 Personal history of urinary (tract) infections; Z90.49 Acquired absence of other specified parts of digestive tract; Z79.899 Other long term (current) drug therapy
CPT/HCPCS: 36415; 71045; 74177; 80048; 80053; 80202; 81003; 81015; 83605; 83690; 83735; 84484; 85025; 86706; 86803; 87040; 87077; 87086; 87149; 87186; 93005; 96361; 96365; 96375; J0744; J1650; J2185; J2405; J3370; J7050; Q0162; Q9966

== ENCOUNTER 2019-11-30 08:53 | Outpatient (CLI) | payer BC ==
--- NOTE | 2019-11-30 09:44 | MMO ---
Bilateral MAMMO Bilat Screen [facility]. CLINICAL HISTORY: Patient is 59 years old and is seen for screening. The patient has no family history of breast cancer. The patient has no personal history of cancer. VIEWS: The views performed were: bilateral craniocaudal; bilateral craniocaudal with tomosynthesis; and bilateral mediolateral oblique with tomosynthesis. FILMS COMPARED: The present examination has been compared to prior imaging studies performed at [facility] on 10/13/2011, 05/25/2013, 05/29/2015 and 11/03/2018. This study has been interpreted with the assistance of computer-aided detection. MAMMOGRAM FINDINGS: There are scattered fibroglandular densities. There are stable benign appearing calcifications seen in both breasts. There are no suspicious masses, suspicious calcifications, or new areas of architectural distortion. IMPRESSION: THERE IS NO MAMMOGRAPHIC EVIDENCE OF MALIGNANCY. A ROUTINE FOLLOW-UP MAMMOGRAM IN 1 YEAR IS RECOMMENDED. THE RESULTS OF THIS EXAM WERE SENT TO THE PATIENT. ACR BI-RADS Category 2 - Benign finding MAMMOGRAPHY NOTE: 1. A negative mammogram report should not delay a biopsy if a dominant of clinically suspicious mass is present. 2. Approximately 10% to 15% of breast cancers are not detected by mammography. 3. Adenosis and dense breasts may obscure an underlying neoplasm. Reported by: MARILU CHEN MD Electonically Signed: [id number]
== END 2019-11-30 08:54 | disposition home or self-care (01) ==
LOC: BICMAMMO 08:53
PROVIDERS: ATTEND Family Medicine
DX: Z12.31 Encounter for screening mammogram for malignant neoplasm of breast (principal)
CPT/HCPCS: 77063; 77067

== ENCOUNTER 2021-01-06 07:59 | Outpatient (CLI) | payer BC | END 2021-01-06 08:00 | disposition home or self-care (01) | LOC: BICMAMMO 07:59 | PROVIDERS: ATTEND Nurse Practitioner Family | DX: Z12.31 Encounter for screening mammogram for malignant neoplasm of breast (principal) | CPT/HCPCS: 77063; 77067 ==

== ENCOUNTER 2022-08-31 12:55 | Outpatient (CLI) | payer BC | END 2022-08-31 12:56 | disposition home or self-care (01) | LOC: CT 12:55 | PROVIDERS: ATTEND Nurse Practitioner Family | DX: R10.9 Unspecified abdominal pain (principal); R31.29 Other microscopic hematuria; D35.02 Benign neoplasm of left adrenal gland; K57.30 Diverticulosis of large intestine without perforation or abscess without bleeding; Z90.49 Acquired absence of other specified parts of digestive tract | CPT/HCPCS: 74176 ==